=== PATIENT | female | born 1980 ===

== ENCOUNTER 2021-12-11 17:25 | Emergency (ER) | payer SELFPAY ==
--- NOTE | 2021-12-11 18:02 | NUR.NOTE ---
Nursing Note: Patient was brought in by EMS. Patient pulled out her IV and stated that she didn't do anything wrong and that she doesn't need to be here. Patient left prior to being seen by the provider. Patient walked outside and went over guardrails towards the water. Patient then came back up and walked across the street and saty on the grass in front [facility]. [employer] police were called
--- NOTE | 2021-12-11 18:29 | NUR.NOTE ---
Nursing Note: 1825 per [facility] the patient is in their custody. They will be calling [facility].
== END 2021-12-11 17:50 ==
LOC: ER 18:41
PROVIDERS: Emergency Provider Physician Assistant
DX: Z53.21 Procedure and treatment not carried out due to patient leaving prior to being seen by health care provider (principal)